=== PATIENT | male | born 1965 | race Caucasian/White ===

== ENCOUNTER 2024-09-30 09:27 | Day surgery (SDC) | payer OTHER ==
[~2024-09-30] VITALS: Ht 182.9 cm; Wt 93.7 kg
[~2024-09-30 09:27] MED LIST: LR 1,000 ML IV SCH
[2024-09-30] MEDS ORDERED: SYNTHROID0.112 MG/T PO (09:59)
[2024-09-30 10:04] VITALS: BP 134/80; PULSE 80; TEMP 97.4
--- NOTE | 2024-09-30 10:08 | NUR ---
Patient admitted to [facility] [place] bay 6 at 0930. Admission assessments complete. Consent signed. Medications, allergies, and pharmacy confirmed. 18G IV inserted into right hand, LR infusing without difficulty. See EMAR for medications. at bedside. Questions answered. Cart in low position, call light within reach.
[2024-09-30] MEDS ORDERED: Rocuronium 50 MG/5 ML Multi-Dose VIAL ONE (10:18)
[2024-09-30] MEDS ORDERED: Lidocaine PF 2% (20 MG/ML) 5 ML VIAL ONE (10:18)
[2024-09-30] MEDS ORDERED: Ondansetron 4 MG/2 ML VIAL ONE (10:18)
[2024-09-30] MEDS ORDERED: fentaNYL 50 MCG/ML 5 ML VIAL ONE (10:18)
[2024-09-30] MEDS ORDERED: NORCO 325 MG-51 TAB PO (10:53)
[2024-09-30] MEDS ORDERED: Topical Skin Adhesive 1 EACH (1 ML) TOP ONE (11:06)
[2024-09-30] MEDS ORDERED: fentaNYL 50 MCG/ML 1 ML SYRINGE/VIAL [PACU/SDC ONLY] IV PRN (11:30)
[2024-09-30] MEDS ORDERED: HYDROmorphone 1 MG/1 ML SYRINGE [PACU/SDC ONLY] IV PRN (11:30)
[2024-09-30] MEDS ORDERED: Ondansetron 4 MG/2 ML VIAL IV PRN ×2 (11:30→12:00)
[2024-09-30] MEDS ORDERED: Ibuprofen 600 MG TAB PO PRN (12:00)
[2024-09-30] MEDS ORDERED: Acetaminophen 325 MG TAB PO PRN (12:00)
[2024-09-30 12:20] VITALS: TEMP 96.9
[2024-09-30 12:50] VITALS: BP 123/65; PULSE 65
--- NOTE | 2024-09-30 13:02 | NUR ---
Patient returns to bay 6 from PACU, via cart. VSS. Bedside handoff received by MISHA Gutierrez. Incisions to abdomen x3, skin glue, CDI. IV fluids infusing through Right hand IV site without issue. Jello and water given per request. at bedside. Reports pain /. Call light within reach.
[2024-09-30 13:05] VITALS: BP 126/68; PULSE 71
--- NOTE | 2024-09-30 13:11 | NUR ---
[place] given for c/o pain 01/17.
[2024-09-30 13:20] VITALS: BP 114/73; PULSE 64
[2024-09-30 13:35] VITALS: BP 135/82; PULSE 76
--- NOTE | 2024-09-30 13:43 | NUR ---
Discharge instructions and education reviewed at 1327 with patient and . Questions answered. Pt wishes to rest a little longer prior to getting dressed.
--- NOTE | 2024-09-30 13:57 | NUR ---
Pt getting dressed at this time. at bedside. Reports pain is tolerable, just feeling tired. Denied nausea.
--- NOTE | 2024-09-30 14:10 | NUR ---
Pt dressed. IV site removed. Ready for discharge. Discharges to wifes car at this time via w/c, accompanied by SERENA Trotter staff member. Denies complaints at time of discharge.
== END 2024-09-30 14:15 | disposition home or self-care (01) ==
LOC: SDCO 09:27
DX: K40.90 Unilateral inguinal hernia, without obstruction or gangrene, not specified as recurrent (principal); Z85.850 Personal history of malignant neoplasm of thyroid
CPT/HCPCS: C1781; J0690; J1171; J2405; J2704; J3010; J7120